=== PATIENT | male | born 1985 | race Caucasian/White ===

== ENCOUNTER 2018-03-03 20:56 | Emergency (ER) | payer BC ==
[2018-03-03] MEDS ORDERED: Multivitamins, Adult 10 ML, Thiamine HCl 100 MG, Folic Acid 1 MG in Dextrose 5 %-0.45 %... IV SCH (22:00)
[2018-03-03 22:57] LABS: #Eosinphils 0.1 thou/uL (0.0-0.7); #Lymphocytes 2.8 thou/uL (1.20-3.40); #Monocytes 0.5 thou/uL (0.11-0.59); #Neutrophils 3.8 thou/uL (1.40-6.50); %Basophils 0.7 % (0.0-1.0); %Eosinophils 0.8 % (0.0-10.0); %Lymphocytes 39.1 % (21.0-51.0); %Monocytes 6.5 % (0.0-10.0); Hemoglobin 16.4 g/dL (14.0-18.0); Mean Corpuscular HGB CONC 34.8 g/dL (32.0-36.0); Mean Corpuscular Hemoglobin 33.6 pg (27.0-31.0); Mean Corpuscular Volume 96.5 fL (78.0-98.0); Mean Platelet Volume 7.7 fL (7.4-10.4); Platelet Count 342 thou/uL (130-400); RBC Distribution Width 12.4 % (11.5-14.5); Red Blood Cell (RBC) Count 4.89 mill/uL (4.70-6.10); White Blood Cell (WBC) Count 7.2 thou/uL (4.8-10.8)
[2018-03-03 23:00] LABS: Bilirubin Negative (Negative); Blood, Urine Negative (Negative); Clarity CLEAR (Clear); Glucose, Urine (Dipstick) Negative (Negative); Leukocyte Negative (Negative); Nitrite Negative (Negative); Protein, Urine (Dipstick) Negative (Neg-Trace); Specific Gravity, Urine 1.018 (1.002-1.036); Urobilinogen 0.2 mg/dL (0.2-1.0)
[2018-03-03 23:17] LABS: Acetaminophen Less than 6.0 mcg/mL (10.0-30.0); Alcohol 260 mg/dL (Less than 10); Salicylate Less than 8.0 mg/dL (15.0-30.0)
[2018-03-03 23:19] LABS: ALT (SGPT) 21 U/L (8-55); AST (SGOT) 24 U/L (5-34); Albumin 4.7 g/dL (3.5-5.0); Alkaline Phosphatase 99 U/L (40-150); Anion Gap 18 mmol/L (10-20); BUN (Urea Nitrogen) 15 mg/dL (8.9-20.6); Bilirubin, Total Less than 0.2 mg/dL (0.2-1.2); CK (CPK) 168 U/L (30-200); Calc. Creatinine Clearance 0 mL/min (70-130); Calcium 9.2 mg/dL (7.8-10.44); Carbon Dioxide 23 mmol/L (22-29); Chloride 104 mmol/L (98-107); Estimated GFR-MDRD Greater than 90; Globulin 3.5 g/dL (2.4-3.5); Glucose 107 mg/dL (70-105); Potassium 3.9 mmol/L (3.5-5.1); Protein, Total 8.2 g/dL (6.0-8.3); Sodium 141 mmol/L (136-145)
[2018-03-04] MEDS ORDERED: Ondansetron ODT 4 MG TAB ONE (08:20)
[2018-03-04] MEDS ORDERED: cloNIDine 0.1 MG TAB ONE ×2 (14:25→14:30)
== END 2018-03-04 20:21 ==
LOC: ERS 20:56
DX: R45.851 Suicidal ideations (principal); I10 Essential (primary) hypertension; F41.9 Anxiety disorder, unspecified; F32.9 Major depressive disorder, single episode, unspecified; F17.210 Nicotine dependence, cigarettes, uncomplicated; Z79.899 Other long term (current) drug therapy
CPT/HCPCS: 36415; 36416; 80053; 80307; 81003; 82550; 84443; 85025; 93005; 96365; 96366; J3411; J7042; Q0162

== ENCOUNTER 2018-04-03 15:39 | Emergency (ER) | payer BC, SELFPAY ==
[2018-04-03 16:42] LABS: Bilirubin Negative (Negative); Blood, Urine Negative (Negative); Clarity CLEAR (Clear); Glucose, Urine (Dipstick) Negative (Negative); Leukocyte Negative (Negative); Nitrite Negative (Negative); Protein, Urine (Dipstick) Trace mg/dL (Neg-Trace); Urobilinogen 0.2 mg/dL (0.2-1.0)
[2018-04-03 16:49] LABS: Hemoglobin 15.7 g/dL (14.0-18.0); Mean Corpuscular HGB CONC 36.1 g/dL (32.0-36.0); Mean Corpuscular Hemoglobin 34.3 pg (27.0-31.0); Mean Platelet Volume 7.3 fL (7.4-10.4); Platelet Count 317 thou/uL (130-400); RBC Distribution Width 11.3 % (11.5-14.5); Red Blood Cell (RBC) Count 4.58 mill/uL (4.70-6.10); White Blood Cell (WBC) Count 5.1 thou/uL (4.8-10.8)
[2018-04-03 16:52] LABS: Amphetamine Not Detected (NotDetected); Barbiturates Screen Not Detected (NotDetected); Benzodiazepine Screen Not Detected (NotDetected); Cocaine Metabolite Screen Not Detected (NotDetected); Medtox Control Line Valid? VALID (VALID); Medtox Reader # READER 4; Methadone Not Detected (NotDetected); Methamphetamine Not Detected (NotDetected); Opiate Screen Not Detected (NotDetected); Oxycodone Screen Not Detected (NotDetected); Phencyclidine (PCP) Not Detected (NotDetected); THC/Cannabinoid Screen Not Detected (NotDetected); Tricyclic Screen Not Detected (NotDetected)
[2018-04-03 17:06] LABS: Acetaminophen Less than 6.0 mcg/mL (10.0-30.0); Alcohol 312 mg/dL (Less than 10); Salicylate Less than 8.0 mg/dL (15.0-30.0)
[2018-04-03 17:12] LABS: ALT (SGPT) 33 U/L (8-55); AST (SGOT) 31 U/L (5-34); Alcohol 313 mg/dL (Less than 10); Alkaline Phosphatase 92 U/L (40-150); Anion Gap 16 mmol/L (10-20); BUN (Urea Nitrogen) 10 mg/dL (8.9-20.6); Bilirubin, Total 0.5 mg/dL (0.2-1.2); CK (CPK) 270 U/L (30-200); Calc. Creatinine Clearance 0 mL/min (70-130); Calcium 9.2 mg/dL (7.8-10.44); Carbon Dioxide 24 mmol/L (22-29); Chloride 105 mmol/L (98-107); Estimated GFR-MDRD Greater than 90; Globulin 3.2 g/dL (2.4-3.5); Glucose 102 mg/dL (70-105); Protein, Total 8.2 g/dL (6.0-8.3); Sodium 141 mmol/L (136-145)
[2018-04-03 17:13] LABS: Eosinophils 1 % (0-10); Lymphocytes 79 % (21-51); MDiff Complete? YES; Monocytes 2 % (0-10); Neutrophil 17 % (42-75); PLT Morphology Comment Appears Adequate
[2018-04-04] MEDS ORDERED: Ondansetron ODT 4 MG TAB ONE (08:59)
--- NOTE | 2018-04-07 11:29 | EKG ---
Test Reason : Blood Pressure : / mmHG Vent. Rate : 106 BPM Atrial Rate : 106 BPM P-R Int : 146 ms QRS Dur : 086 ms QT Int : 338 ms P-R-T Axes : 034 001 042 degrees QTc Int : 448 ms Sinus tachycardia Possible Left atrial enlargement Left ventricular hypertrophy Abnormal ECG Confirmed by KATIE POP DO ([id number]), newspaper photo editor STONEY VARGAS ([id number]) on 04/07/2018 11:29:29 AM Referred By: Confirmed By:KATIE POP DO
== END 2018-04-04 10:29 | disposition home or self-care (01) ==
LOC: ERS 15:39
DX: F10.10 Alcohol abuse, uncomplicated (principal); Y90.3 Blood alcohol level of 60-79 mg/100 ml; F41.9 Anxiety disorder, unspecified; I10 Essential (primary) hypertension; F32.9 Major depressive disorder, single episode, unspecified; Z87.891 Personal history of nicotine dependence; Z79.899 Other long term (current) drug therapy
CPT/HCPCS: 36415; 80053; 80306; 80307; 81003; 82550; 84443; 85025; 93005; 96360; Q0162